=== PATIENT | female | born 1935 | race Caucasian/White ===

== ENCOUNTER 2017-08-31 13:47 | Outpatient (CLI) | payer MEDICARE, OTHER ==
[~2017-08-31] VITALS: Ht 160 cm; Wt 89.8 kg
[2017-08-31 14:10] VITALS: BP 147/77
[2017-08-31] MEDS ORDERED: ASPIRIN EC81 MG ORAL (14:37)
[2017-08-31] MEDS ORDERED: VITAMIN D1000 UNI1 ORAL (14:37)
[2017-08-31] MEDS ORDERED: POTASSIUM99 M3 PO (14:37)
[2017-08-31] MEDS ORDERED: HYDROCHLOROTHIA50 MG ORAL (14:37)
--- NOTE | 2017-08-31 14:56 | GI Initial Consult Note ---
BegumAnupama Werner N.P. 08/31/17 1456: History of Present Illness General Date patient seen: Aug 31, 2017 Time patient seen: 14:53 Referring physician: ALMA ROSA Reason for Consultation: Colonoscopy screening Present Illness HPI 82 year old female patient referred by Dr. Lara for routine colonoscopy. Last colonoscopy 10+ years ago. Patient presents today with no GI symptoms. Denies any unintentional weight loss or changes in dietary habits. No signs of abuse or neglect. Patient is not fall risk. Home Meds Reported Medications Cholecalciferol (Vitamin D3)* (VITAMIN D*) 1,000 Unit Tablet, ORAL DAILY, #30 TAB 08/31/17 Potassium Gluconate (POTASSIUM) 99 Mg Tablet, PO DAILY, TAB 08/31/17 Aspirin Ec* (ASPIRIN EC*) 81 Mg Tablet.dr, 81 MG ORAL DAILY, TAB 08/31/17 Hydrochlorothiazide* (HYDROCHLOROTHIAZIDE*) 50 Mg Tablet, 50 MG ORAL DAILY, TAB 08/31/17 Med list reviewed/reconciled: Yes Allergies: Coded Allergies: No Known Allergies (Unverified , 08/31/17) Patient History History Provided By: Patient, Medical Record PMH Narrative HTN Past Surgical History: N/A Family History Narrative N/A Social History: Denies: smoking, alcohol use, drug use, other Review of Systems All Other Systems: negative except mentioned in HPI Physical Exam T 98.0 BP 147/77 P 55 HT 5'3 WT 198 Sp02 EP Interpretation: reviewed, normal General Appearance: well appearing, no apparent distress, alert Head: normocephalic EENT: PERRL/EOMI, normal ENT inspection Neck: supple Respiratory: normal breath sounds, no respiratory distress Cardiovascular: normal rate Gastrointestinal: normal inspection, non tender, soft, normal bowel sounds, non -distended Rectal: deferred Genitourinary: no CVA tenderness Musculoskeletal: normal inspection, back normal Neurologic: normal inspection, alert, oriented x3, responsive Psychiatric: normal inspection, judgement/insight normal, memory normal Skin: normal inspection, normal color, no rash, warm/dry, palpation normal, well hydrated Lymphatic: normal inspection, no adenopathy GI: Plan Problems: (1) Colonoscopy planned Plan colonoscopy scheduled for 09/06/17 - CLD & (Nulytely/Suprep/Movi-Prep) prep instructions given and acknowledged by patient. - NPO @ MI day prior procedure explained. Seen with Dr. Conte. Thank you for this patient referral. ABEL CONTE 09/04/17 1514: History of Present Illness Present Illness Home Meds Reported Medications Cholecalciferol (Vitamin D3)* (VITAMIN D*) 1,000 Unit Tablet, ORAL DAILY, #30 TAB 08/31/17 Potassium Gluconate (POTASSIUM) 99 Mg Tablet, PO DAILY, TAB 08/31/17 Aspirin Ec* (ASPIRIN EC*) 81 Mg Tablet.dr, 81 MG ORAL DAILY, TAB 08/31/17 Hydrochlorothiazide* (HYDROCHLOROTHIAZIDE*) 50 Mg Tablet, 50 MG ORAL DAILY, TAB 08/31/17 Allergies: Coded Allergies: No Known Allergies (Unverified , 08/31/17) GI: Plan Plan The patient was seen and examined at bedside and all new and available data was reviewed in the patients chart. I agree with the above findings, impression and plan. (Patient seen earlier today. Signature stamp does not reflect patient encounter time.). - MD [facility] Werner N.PElisabeth Aug 31, 2017 14:56 ABEL CONTE Sep 04, 2017 15:14
== END 2017-08-31 14:22 | disposition home or self-care (01) ==
LOC: PAN 13:47
DX: I10 Essential (primary) hypertension (principal); Z79.82 Long term (current) use of aspirin
CPT/HCPCS: 99201